=== PATIENT | female | born 1985 | race Caucasian/White ===

== ENCOUNTER 2021-09-13 12:59 | Emergency (ER) | payer OTHER, SELFPAY ==
[2021-09-13 13:20] VITALS: BP 134/88; PULSE 86; RESP 20; TEMP 35.8; O2SAT 97; BMI 34.1
[2021-09-13 13:30] VITALS: BP 126/76; PULSE 77; RESP 23; O2SAT 97
--- NOTE | 2021-09-13 13:42 | CRLHL7_ITS ---
For Patients: As a result of the Cures Act, medical imaging exams and procedure reports are released immediately into your electronic medical record. You may view this report before your referring provider. If you have questions, please contact your health care provider. INDICATION: Difficulty breathing TECHNIQUE: Chest radiograph 2 views COMPARISON: None FINDINGS: Mediastinum: The mediastinum is normal in appearance. The heart silhouette is normal in size and morphology. Lung: Small lung volumes are present with patchy airspace infiltrates present in the right midlung zone and bilateral lung bases, likely due to pneumonia. No sign of pleural effusion seen. No pneumothorax is identified. Bone and Soft tissue: Unremarkable for age. IMPRESSION: 1. Small lung volumes are present with patchy airspace infiltrates present in the right midlung zone and bilateral lung bases, likely due to pneumonia. Dictated by Suhail Prakash MD @ 09/13/2021 2:54:26 PM Dictated by: Suhail Prakash MD @ 09/13/2021 14:54:31 (Electronically Signed)
--- NOTE | 2021-09-13 13:49 | ED.SOB ---
HPI - SOB/Dyspnea General Time Seen by Provider: 13:49 <Steven Vargas MD - Last Filed: 09/13/21 17:06> Date Seen: 09/13/21 <Steven Vargas MD - Last Filed: 09/13/21 17:06> Chief Complaint: Shortness of Breath/Dyspnea <Steven Vargas MD - Last Filed: 09/13/21 17:06> Stated Complaint: Difficulty breathing and tight chest <Steven Vargas MD - Last Filed: 09/13/21 17:06> Time Seen by Provider: 09/13/21 13:02 <Steven Vargas MD - Last Filed: 09/13/21 17:06> Source: patient <Steven Vargas MD - Last Filed: 09/13/21 17:06> Mode of arrival: ambulatory <Steven Vargas MD - Last Filed: 09/13/21 17:06> Limitations: no limitations <Steven Vargas MD - Last Filed: 09/13/21 17:06> History of Present Illness HPI Narrative: Patient is the 36-year-old female who presents here for evaluation of shortness of breath and tightness of her upper chest region. Had this for the last 4 days, came on gradually, no real cough for cold-like symptoms associated with this. She wonders if this is asthma as there is a family history of both her sister and her mother having asthma she actually used a nebulizer of albuterol at home a couple times with no real improvement. Denies any fevers chills, other was no sudden onset of this, taking a deep breath in does cause exacerbation over upper chest region. Denies any radiation to her neck back or shoulders, denies any exertional component to this and occurs at rest also. Never before had this, denies any leg swelling, no recent long trips, and is not on oral contraceptives. No family history of PE DVT or premature heart disease, nonsmoker lifetime, non COVID vaccinated <Steven Vargas MD - Last Filed: 09/13/21 17:06> MD elicited complaint: shortness of breath and asthma attack <Steven Vargas MD - Last Filed: 09/13/21 17:06> Onset (ago): day(s) <Steven Vargas MD - Last Filed: 09/13/21 17:06> Exacerbating factors: deep breaths <Steven Vargas MD - Last Filed: 09/13/21 17:06> Relieving factors: nothing <Steven Vargas MD - Last Filed: 09/13/21 17:06> Associated symptoms: denies other symptoms <Steven Vargas MD - Last Filed: 09/13/21 17:06> Treatment prior to arrival: none <Steven Vargas MD - Last Filed: 09/13/21 17:06> Related Data Home Medications: Home Medications Medication Instructions Recorded Confirmed No Known Home Medications 09/13/21 09/13/21 <Steven Vargas MD - Last Filed: 09/13/21 17:06> Allergies/Adverse Reactions: Allergies Allergy/AdvReac Type Severity Reaction Status Date / Time morphine Allergy Verified 09/13/21 13:18 antidepressent Allergy Uncoded 09/13/21 13:18 steri strips Allergy Uncoded 09/13/21 13:18 <Steven Vargas MD - Last Filed: 09/13/21 17:06> Review of Systems Status of ROS: Reports: 10 or more systems reviewed and unremarkable except as noted in History and below <Steven Vargas MD - Last Filed: 09/13/21 17:06> [facility] Social History: Social History Smoking Status: Never smoker Do you use any of these nicotine containing products: None Second hand tobacco smoke exposure: Yes How often do you have a drink containing alcohol: never How often do you have six or more drinks on one occasion: Never AUDIT-C Alcohol total score: 0 Non-prescribed substance use: denies use service: No <Steven Vargas MD - Last Filed: 09/13/21 17:06> Exam Narrative: Exam Narrative: Patient is speaking to me normally in no apparent distress but looks a little bit anxious. Vital signs are reviewed all within normal limits with a slightly increased respiratory rate. Pupils equal round reactive to light oropharynx normal TMs normal neck is supple there is no JVP elevation, chest is good air entry bilaterally with absence of crackles or wheezes or signs or spiked her distress her heart sounds are normal her abdomen is soft and slightly obese, no organomegaly, no tenderness, scar from right lower abdominal incision for her gallbladder and her appendix noted. CVAT and back is normal. Extremities are all normal with absence of edema swelling, negative Homans sign normal peripheral pulses normal neurologic function normal power upper lower extremities and normal sensation. No evidence of rashes <Steven Vargas MD - Last Filed: 09/13/21 17:06> Const: Vital Signs, click to edit/add: Vital Signs - 24 hr 09/13/21 13:20 09/13/21 13:30 09/13/21 14:06 Temperature 96.4 F L Pulse Rate [Pulse Oximeter] 86 77 81 Respiratory Rate 20 23 11 L Blood Pressure [Ri ght Upper Arm] 134/88 126/76 136/83 Pulse Oximetry 97 97 Oxygen Delivery Me thod Room Air Room Air 09/13/21 15:50 Temperature Pulse Rate [Pulse Oximeter] 88 Respiratory Rate 20 Blood Pressure [Ri ght Upper Arm] 138/91 H Pulse Oximetry Oxygen Delivery Me thod <Steven Vargas MD - Last Filed: 09/13/21 17:06> Vital Signs, click to edit/add: Vital Signs - 24 hr 09/13/21 13:20 09/13/21 13:30 09/13/21 14:06 Temperature 96.4 F L Pulse Rate [Pulse Oximeter] 86 77 81 Respiratory Rate 20 23 11 L Blood Pressure [Ri ght Upper Arm] 134/88 126/76 136/83 Pulse Oximetry 97 97 Oxygen Delivery Me thod Room Air Room Air 09/13/21 15:50 Temperature Pulse Rate [Pulse Oximeter] 88 Respiratory Rate 20 Blood Pressure [Ri ght Upper Arm] 138/91 H Pulse Oximetry Oxygen Delivery Me thod <Vish Valentin MD - Last Filed: 09/13/21 18:44> Documenting provider has reviewed patient's vital signs: yes <Steven Vargas MD - Last Filed: 09/13/21 17:06> Course Course Hospital Course: Currently waiting on chest CT, as the chest x-ray did look like this is a community-acquired pneumonia, but given the shortness of breath the patient has I want to rule out pulmonary embolism even with normal D-dimer. I communicated this with the oncoming ER physician who will be taking over care and following up of the CT. If this does indeed show community-acquired pneumonia I recommend either mono treatment with Levaquin or use of Augmentin and Zithromax. <Steven Vargas MD - Last Filed: 09/13/21 17:06> Reevaluation(s) Reevaluation #1: CT shows no evidence of pulmonary embolism. She does have community-acquired pneumonia however. <Vish Valentin MD - Last Filed: 09/13/21 18:44> Time: 18:40 <Vish Valentin MD - Last Filed: 09/13/21 18:44> Vital Signs Vital signs: Initial Vital Signs Temperature 96.4 F L 09/13/21 13:20 Temperature Source Temporal Artery Scan 09/13/21 13:20 Pulse Rate 86 09/13/21 13:20 Pulse Rhythm 09/13/21 13:20 Respiratory Rate 20 09/13/21 13:20 Blood Pressure 134/88 09/13/21 13:20 Blood Pressure Mean 103 09/13/21 13:20 Pulse Oximetry 97 09/13/21 13:20 Oxygen Delivery Method 09/13/21 13:20 Vital Signs Temperature 96.4 F L 09/13/21 13:20 Pulse Rate 86 09/13/21 13:20 Respiratory Rate 20 09/13/21 13:20 Blood Pressure 134/88 09/13/21 13:20 Pulse Oximetry 97 09/13/21 13:20 Oxygen Delivery Method 09/13/21 13:20 Temperature 96.4 F L 09/13/21 13:20 Pulse Rate 88 09/13/21 15:50 Respiratory Rate 20 09/13/21 15:50 Blood Pressure 138/91 H 09/13/21 15:50 Pulse Oximetry 97 09/13/21 13:30 Oxygen Delivery Method 09/13/21 13:30 <Steven Vargas MD - Last Filed: 09/13/21 17:06> Initial Vital Signs Temperature 96.4 F L 09/13/21 13:20 Temperature Source Temporal Artery Scan 09/13/21 13:20 Pulse Rate 86 09/13/21 13:20 Pulse Rhythm 09/13/21 13:20 Respiratory Rate 20 09/13/21 13:20 Blood Pressure 134/88 09/13/21 13:20 Blood Pressure Mean 103 09/13/21 13:20 Pulse Oximetry 97 09/13/21 13:20 Oxygen Delivery Method 09/13/21 13:20 Vital Signs Temperature 96.4 F L 09/13/21 13:20 Pulse Rate 86 09/13/21 13:20 Respiratory Rate 20 09/13/21 13:20 Blood Pressure 134/88 09/13/21 13:20 Pulse Oximetry 97 09/13/21 13:20 Oxygen Delivery Method 09/13/21 13:20 Temperature 96.4 F L 09/13/21 13:20 Pulse Rate 88 09/13/21 15:50 Respiratory Rate 20 09/13/21 15:50 Blood Pressure 138/91 H 09/13/21 15:50 Pulse Oximetry 97 09/13/21 13:30 Oxygen Delivery Method 09/13/21 13:30 <Vish Valentin MD - Last Filed: 09/13/21 18:44> MDM - SOB/Dyspnea MDM Narrative Medical decision making narrative: Life-threatening differential diagnosis includes occluded COPD exacerbation, pulmonary edema, acute coronary syndromes, pulmonary embolism, pneumonia, and pneumothorax. Other differential diagnosis considerations include asthma, bronchitis as well as other etiologies, During the evaluation of this patient I considered multiple differential diagnosis is. The life-threatening differential diagnosis include coronary disease/MA, pulmonary embolism, pneumothorax, pneumonia, and aortic dissection. Other differential diagnosis included but were not limited to pericarditis, myocarditis, chest wall pain, GERD, esophageal rupture, rib fracture contusion, pleurisy, as well as other etiologies. <Steven Vargas MD - Last Filed: 09/13/21 17:06> Medical Records Attestation: I reviewed the patient's medical records. <Steven Vargas MD - Last Filed: 09/13/21 17:06> Lab Data Attestation: I reviewed the patient's lab results. <Steven Vargas MD - Last Filed: 09/13/21 17:06> Labs: Lab Results 09/13/21 09/13/21 09/13/21 Range/Units 14:05 15:17 15:17 WBC 6.91 (4.50-11.00) K/uL RBC 4.09 (4.00-5.20) m/uL Hgb 11.9 L (12.0-16.0) gm/dL Hct 35.0 (33.0-51.0) % MCV 86 (80-100) fL MCH 29 (26-34) pg MCHC 34 (32-36) gm/dL RDW Coeff of Idalmis 12.5 (11.5-15.5) % Plt Count 277 (140-440) K/uL Neut % (Auto) 47.3 (42.0-72.0) % Lymph % (Auto) 36.8 (20-44) % Addison % (Auto) 9.4 (0.0-11.0) % Eos % (Auto) 5.6 (0.0-7.0) % Baso % (Auto) 0.6 (0.0-3.0) % Neut # (Auto) 3.27 (1.7-7.0) K/uL Lymph # (Auto) 2.54 (0.90-2.90) K/uL Addison # (Auto) 0.60 (0.00-0.90) K/UL Eos # (Auto) 0.39 (0.00-0.50) K/uL Baso # (Auto) 0.04 (0.00-0.30) K/uL Abs Immat Gran (auto) 0.02 (0.00-0.30) K/uL D-Dimer Quant (PE/DVT) 0.38 (0.00-0.50) ug/ml Sodium (135-149) mmol/L Potassium (3.6-5.1) mmol/L Chloride (96-114) mmol/L Carbon Dioxide (20-32) mmol/L BUN (5-24) mg/dL Creatinine (0.5-1.5) mg/dL Estimated Creat Clear Estimated GFR ml/min Glucose (60-115) mg/dL Calcium (8.4-10.6) mg/dL NT-Pro-B Natriuret Pep (0-125) PG/mL SARS-CoV-2 (PCR) Negative SARS-CoV-2 (Negative) Influenza Type A (PCR) Negative PCR FLU A (Negative) Influenza Type B (PCR) Negative PCR FLU B (Negative) RSV (PCR) Negative PCR RSV (Negative) POC Troponin I (0.01-0.04) ng/ml 09/13/21 09/13/21 Range/Units 15:17 15:17 WBC (4.50-11.00) K/uL RBC (4.00-5.20) m/uL Hgb (12.0-16.0) gm/dL Hct (33.0-51.0) % MCV (80-100) fL MCH (26-34) pg MCHC (32-36) gm/dL RDW Coeff of Idalmis (11.5-15.5) % Plt Count (140-440) K/uL Neut % (Auto) (42.0-72.0) % Lymph % (Auto) (20-44) % Addison % (Auto) (0.0-11.0) % Eos % (Auto) (0.0-7.0) % Baso % (Auto) (0.0-3.0) % Neut # (Auto) (1.7-7.0) K/uL Lymph # (Auto) (0.90-2.90) K/uL Addison # (Auto) (0.00-0.90) K/UL Eos # (Auto) (0.00-0.50) K/uL Baso # (Auto) (0.00-0.30) K/uL Abs Immat Gran (auto) (0.00-0.30) K/uL D-Dimer Quant (PE/DVT) (0.00-0.50) ug/ml Sodium 140 (135-149) mmol/L Potassium 3.8 (3.6-5.1) mmol/L Chloride 105 (96-114) mmol/L Carbon Dioxide 26 (20-32) mmol/L BUN 10 (5-24) mg/dL Creatinine 0.5 (0.5-1.5) mg/dL Estimated Creat Clear 154.17 Estimated GFR 126 ml/min Glucose 94 (60-115) mg/dL Calcium 8.8 (8.4-10.6) mg/dL NT-Pro-B Natriuret Pep 79 (0-125) PG/mL SARS-CoV-2 (PCR) (Negative) Influenza Type A (PCR) (Negative) Influenza Type B (PCR) (Negative) RSV (PCR) (Negative) POC Troponin I 0.00 L (0.01-0.04) ng/ml <Steven Vargas MD - Last Filed: 09/13/21 17:06> Lab Results 09/13/21 09/13/21 09/13/21 Range/Units 14:05 15:17 15:17 WBC 6.91 (4.50-11.00) K/uL RBC 4.09 (4.00-5.20) m/uL Hgb 11.9 L (12.0-16.0) gm/dL Hct 35.0 (33.0-51.0) % MCV 86 (80-100) fL MCH 29 (26-34) pg MCHC 34 (32-36) gm/dL RDW Coeff of Idalmis 12.5 (11.5-15.5) % Plt Count 277 (140-440) K/uL Neut % (Auto) 47.3 (42.0-72.0) % Lymph % (Auto) 36.8 (20-44) % Addison % (Auto) 9.4 (0.0-11.0) % Eos % (Auto) 5.6 (0.0-7.0) % Baso % (Auto) 0.6 (0.0-3.0) % Neut # (Auto) 3.27 (1.7-7.0) K/uL Lymph # (Auto) 2.54 (0.90-2.90) K/uL Addison # (Auto) 0.60 (0.00-0.90) K/UL Eos # (Auto) 0.39 (0.00-0.50) K/uL Baso # (Auto) 0.04 (0.00-0.30) K/uL Abs Immat Gran (auto) 0.02 (0.00-0.30) K/uL D-Dimer Quant (PE/DVT) 0.38 (0.00-0.50) ug/ml Sodium (135-149) mmol/L Potassium (3.6-5.1) mmol/L Chloride (96-114) mmol/L Carbon Dioxide (20-32) mmol/L BUN (5-24) mg/dL Creatinine (0.5-1.5) mg/dL Estimated Creat Clear Estimated GFR ml/min Glucose (60-115) mg/dL Calcium (8.4-10.6) mg/dL NT-Pro-B Natriuret Pep (0-125) PG/mL SARS-CoV-2 (PCR) Negative SARS-CoV-2 (Negative) Influenza Type A (PCR) Negative PCR FLU A (Negative) Influenza Type B (PCR) Negative PCR FLU B (Negative) RSV (PCR) Negative PCR RSV (Negative) POC Troponin I (0.01-0.04) ng/ml 09/13/21 09/13/21 Range/Units 15:17 15:17 WBC (4.50-11.00) K/uL RBC (4.00-5.20) m/uL Hgb (12.0-16.0) gm/dL Hct (33.0-51.0) % MCV (80-100) fL MCH (26-34) pg MCHC (32-36) gm/dL RDW Coeff of Idalmis (11.5-15.5) % Plt Count (140-440) K/uL Neut % (Auto) (42.0-72.0) % Lymph % (Auto) (20-44) % Addison % (Auto) (0.0-11.0) % Eos % (Auto) (0.0-7.0) % Baso % (Auto) (0.0-3.0) % Neut # (Auto) (1.7-7.0) K/uL Lymph # (Auto) (0.90-2.90) K/uL Addison # (Auto) (0.00-0.90) K/UL Eos # (Auto) (0.00-0.50) K/uL Baso # (Auto) (0.00-0.30) K/uL Abs Immat Gran (auto) (0.00-0.30) K/uL D-Dimer Quant (PE/DVT) (0.00-0.50) ug/ml Sodium 140 (135-149) mmol/L Potassium 3.8 (3.6-5.1) mmol/L Chloride 105 (96-114) mmol/L Carbon Dioxide 26 (20-32) mmol/L BUN 10 (5-24) mg/dL Creatinine 0.5 (0.5-1.5) mg/dL Estimated Creat Clear 154.17 Estimated GFR 126 ml/min Glucose 94 (60-115) mg/dL Calcium 8.8 (8.4-10.6) mg/dL NT-Pro-B Natriuret Pep 79 (0-125) PG/mL SARS-CoV-2 (PCR) (Negative) Influenza Type A (PCR) (Negative) Influenza Type B (PCR) (Negative) RSV (PCR) (Negative) POC Troponin I 0.00 L (0.01-0.04) ng/ml <Vish Valentin MD - Last Filed: 09/13/21 18:44> Imaging Data Chest x-ray: Attestation: I have reviewed the pertinent imaging results. <Steven Vargas MD - Last Filed: 09/13/21 17:06> My impression: Right-sided hilar infiltrate possible pneumonia <Steven Vargas MD - Last Filed: 09/13/21 17:06> Radiologist's impression: Patient: DANNY RIVERA Facility:?[facility] Patient ID:?[id number] Site Patient ID:?[id number] Site :?[id number] Study:?XRay Chest 2 VIEW-09/13/2021 2:34:19 PM Ordering Physician:Rayna Harris Final Report: INDICATION: Difficulty breathing TECHNIQUE: Chest radiograph 2 views COMPARISON: None FINDINGS: Mediastinum: The mediastinum is normal in appearance. The heart silhouette is normal in size and morphology. Lung: Small lung volumes are present with patchy airspace infiltrates present in the right midlung zone and bilateral lung bases, likely due to pneumonia. No sign of pleural effusion seen. No pneumothorax is identified. Bone and Soft tissue: Unremarkable for age. IMPRESSION: 1. Small lung volumes are present with patchy airspace infiltrates present in the right midlung zone and bilateral lung bases, likely due to pneumonia. Dictated by Suhail Prakash MD @ 09/13/2021 2:54:26 PM Dictated by: Suhail Prakash MD @ 09/13/2021 14:54:31 (Electronic Signature) <Steven Vargas MD - Last Filed: 09/13/21 17:06> CT scan - chest: My impression: Community-acquired pneumonia <Vish Valentin MD - Last Filed: 09/13/21 18:44> Discharge Plan Discharge Clinical Impression: Community acquired pneumonia <Steven Vargas MD - Last Filed: 09/13/21 17:06> Patient Disposition: Home, Self-Care <Steven Vargas MD - Last Filed: 09/13/21 17:06> Condition: Stable <Steven Vargas MD - Last Filed: 09/13/21 17:06> Instructions: Community Acquired Pneumonia (DC), Shortness of Breath (ED) <Steven Vargas MD - Last Filed: 09/13/21 17:06> Additional Instructions: Levaquin as directed <Steven Vargas MD - Last Filed: 09/13/21 17:06> Activity Level: No Restrictions <Steven Vargas MD - Last Filed: 09/13/21 17:06> No Restrictions <Vish Valentin MD - Last Filed: 09/13/21 18:44> Discharge Diet: Regular <Steven Vargas MD - Last Filed: 09/13/21 17:06> Regular <Vish Valentin MD - Last Filed: 09/13/21 18:44> Prescriptions: No Action No Known Home Medications <Steven Vargas MD - Last Filed: 09/13/21 17:06> Follow Up/Referrals: Eliazar Lagos MD [Primary Care Provider] - <Steven Vargas MD - Last Filed: 09/13/21 17:06> Stand Alone Forms: [facility] Info Instructions <Steven Vargas MD - Last Filed: 09/13/21 17:06>
[2021-09-13 14:06] VITALS: BP 136/83; PULSE 81; RESP 11
[2021-09-13 14:51] LABS: PCR FLU A Negative PCR FLU A (Negative); PCR FLU B Negative PCR FLU B (Negative); PCR RSV Negative PCR RSV (Negative)
--- NOTE | 2021-09-13 14:51 | ED.NURSE ---
Anesthesia in to attempt IV start
[2021-09-13 14:54] LABS: SARS PCR* Negative SARS-CoV-2 (Negative)
--- NOTE | 2021-09-13 15:20 | ED.NURSE ---
anesthesia started iv R AC, #18. blood drawn off iv start
[2021-09-13 15:30] LABS: Basophils Absolute Auto 0.04 K/uL (0.00-0.30); Basophils Percent Auto 0.6 % (0.0-3.0); Eosinophils Absolute Auto 0.39 K/uL (0.00-0.50); Eosinophils Percent Auto 5.6 % (0.0-7.0); Hemoglobin* 11.9 gm/dL (12.0-16.0); Immature Granulocytes Abs Auto 0.02 K/uL (0.00-0.30); Lymphocytes Absolute Auto 2.54 K/uL (0.90-2.90); Lymphocytes Percent Auto 36.8 % (20-44); Mean Corpuscular HGB Conc 34 gm/dL (32-36); Mean Corpuscular Hemoglobin 29 pg (26-34); Mean Corpuscular Volume 86 fL (80-100); Monocytes Percent Auto 9.4 % (0.0-11.0); Neutrophils Absolute Auto 3.27 K/uL (1.7-7.0); Neutrophils Percent Auto 47.3 % (42.0-72.0); Platelet Count* 277 K/uL (140-440); RDW Coefficient of Variation % 12.5 % (11.5-15.5); Red Blood Count 4.09 m/uL (4.00-5.20); White Blood Count* 6.91 K/uL (4.50-11.00)
[2021-09-13 15:37] LABS: Slide Review Reflex No
[2021-09-13 15:50] VITALS: BP 138/91; PULSE 88; RESP 20
[2021-09-13 15:53] LABS: Chloride* 105 mmol/L (96-114); Sodium* 140 mmol/L (135-149)
[2021-09-13 15:54] LABS: Potassium* 3.8 mmol/L (3.6-5.1)
[2021-09-13 15:55] LABS: D Dimer Quantitative* 0.38 ug/ml (0.00-0.50)
[2021-09-13 15:56] LABS: Creatinine* 0.5 mg/dL (0.5-1.5); Est. Creatinine Clearance* 154.17; Estimated Glomerular Filt Rate 126 ml/min
[2021-09-13 15:57] LABS: Blood Urea Nitrogen* 10 mg/dL (5-24); Calcium* 8.8 mg/dL (8.4-10.6); Carbon Dioxide* 26 mmol/L (20-32); Glucose* 94 mg/dL (60-115)
[2021-09-13 16:04] LABS: NT Pro B Type NatriureticPept* 79 PG/mL (0-125)
--- NOTE | 2021-09-13 16:13 | CRLHL7_ITS ---
For Patients: As a result of the Century Cures Act, medical imaging exams and procedure reports are released immediately into your electronic medical record. You may view this report before your referring provider. If you have questions, please contact your health care provider. INDICATION: Shortness of breath, chest pain. TECHNIQUE : CT scan of the chest. CTA PE protocol. IV contrast. IV contrast: Isovue 370 95 mL Please note that all CT scans at this facility use dose modulation, iterative reconstruction and/or weight-based dosing when appropriate to reduce radiation dose to as low as reasonably achievable(ALARA). COMPARISON : No comparison chest CT. FINDINGS: CALL OR CONTACT CENT[employer] MANAGER CT IMAGES: Patchy airspace opacification is suspected in the right upper lung zone. Cholecystectomy surgical clips are noted in the right upper abdomen. Heart size within normal limits. PULMONARY ARTERIES: No focal pulmonary artery filling defects. THORACIC AORTA: Thoracic aorta normal in caliber. No dissection. HEART AND MEDIASTINUM: Heart size is normal. No pericardial effusion. No pathologically enlarged mediastinal lymph nodes. No anterior mediastinal mass. LUNGS AND PLEURA: Patchy opacities in the right upper lobe with scattered ground-glass opacities. There are additional areas of ground-glass opacification in the left lingula and left lower lobe. No pleural effusions or pneumothorax. CHEST WALL AND SOFT TISSUES: Chest wall soft tissues unremarkable. No enlarged axillary lymph nodes. THYROID GLAND: Within normal limits. UPPER ABDOMEN: Gallbladder surgically absent. BONES: Unremarkable. IMPRESSION: 1. Multifocal pneumonia involving the right upper lobe, left lower lobe, and left lingula with differential including COVID-19 viral pneumonitis. 2. No acute pulmonary embolism. Dictated by Scooter Baxter MD @ 09/13/2021 6:22:32 PM Please note that all CT scans at this facility use dose modulation, iterative reconstruction, and/or weight-based dosing when appropriate to reduce radiation dose to as low as reasonably achievable. Dictated by: Scooter Baxter MD @ 09/13/2021 18:22:46 (Electronically Signed)
[2021-09-13] MEDS: 0.9 % SODIUM CHLORIDE 1000 ml 1,000 ML IV (16:20)
--- NOTE | 2021-09-13 16:57 | ED.NURSE ---
Pt to and back from radiology
== END 2021-09-13 19:01 | disposition home or self-care (01) ==
PROVIDERS: Family Medicine; Emergency Provider Internal Medicine; PCP Family Medicine
DX: J18.9 Pneumonia, unspecified organism (principal)
CPT/HCPCS: 36415; 71046; 71260; 80048; 83880; 84484; 85025; 85379; 87502; 87634; 87635; 93005; 96360; 99283; 99284; 99285; J7030; Q9967

== ENCOUNTER 2023-10-04 10:11 | Outpatient (CLI) | payer BC, SELFPAY ==
--- OUTSIDE RECORDS SUMMARY | 2023-10-04 10:17 | XMS_ITS | Clinical Summary ---
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 20 tablet 0 09/01/2011 Active sertraline (ZOLOFT) 100 mg tabletIndications:Dep ression, major Take 2 tablets by mouth once daily. 180 tablet 3 09/29/2011 Active buPROPion (WELLBUTRIN XL) 150 mg Extended-Release tabletIndications:Dep ression, major,Anxiety state, unspecified Take 1 tablet by mouth every morning. 90 tablet 0 10/19/2011 Active ketoconazole 2% shampoo (NIZORAL) 2 % shampooIndications:Ti milady capitis Apply topically to affected area(s) once daily. Lather on damp scalp,leave on for 5min, rinse with water. 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 Depression, major 04/13/2008 Anxiety state, unspecified 04/13/2008 Immunizations Name Administration Dates Next Due Hepatitis A (Adult) 10/19/2011 Human Papilloma Virus Vaccine 04/02/2009, 009,05/22/2008 Influenza, IIV3 (Age >=3 years) 10/19/2011,10/19 Tdap 09/01/2011 Family History Medical History Relation Name Comments Diabetes Father Cancer Maternal Aunt Diabetes Maternal Aunt Heart Disease Maternal Aunt Hypertension Maternal Grandmother Cancer Maternal Uncle Asthma Mother Psychiatric illness Mother depressi on Diabetes Paternal Aunt Diabetes Paternal Grandfather Diabetes Paternal Grandmother Relation Name Status Comments Father Maternal Aunt Maternal Grandmother Maternal Uncle Mother Paternal Aunt Paternal Grandfather Paternal Grandmother Social History Tobacco Use Types Packs/Day Years Used Date Smoking Tobacco: Never Smokeless Tobacco: Never Alcohol Use Standard Drinks/Week Comments Yes 0 (1 standard drink = 0.6 oz pur e alcohol) rarely Sex and Gender Information Value Date Recorded Sex Assigned at Not on file Gender Identity Not on file Sexual Orientation Not on file Obstetrics History Last Filed Vital Signs Vital Sign Reading Time Taken Comments Blood Pressure 138/82 11/24/2011 2:40 PM CDT Pulse 80 11/24/2011 2:40 PM CDT Temperature 37.1 ??C (98.7 ??F) 10/19/2011 6:17 PM CD T Respiratory Rate 18 11/24/2011 2:40 PM CDT Oxygen Saturation - - Inhaled Oxygen Concentration - - Weight 118.8 kg (261 lb 12.8 oz) 11/24/2011 2:40 PM CDT Height 167 cm (5' 5.75) 10/19/2011 6:17 PM CDT Body Mass Index 42.58 10/19/2011 6:17 PM CDT Plan of Treatment Health Maintenance Due Date Last Done Comments Depression screening for age 12+ 1998 HIV for age 15-65 2001 BMI (ht and wt on same day) for age 18+ 2004 Hepatitis C screening for age 18-79 2004 Tetanus booster 08/31/2021 09/01/2011 COVID-19 vaccine series (2022- season) 2022 Influenza for age 9-49 10/07/2023 10/19/2011, 2008 Pap test for age 21-65 01/17/2026 , 01/17/2023, 09/01/2011, Additional history exists Tdap Completed 09/01/2011 Pneumococcal series for age 6-64 Aged Out No longer eligible based on patient's age to complete this topic Procedures Procedure Name Priority Date/Time Associated Diagnosis Comments HPV THIN PREP Routine 01/17/2023 12:00 PM ETCHER MACHINE from Last 3 Months or Most Recently Relevant to Health Maintenance Results * HPV HIGH RISK (01/17/2023 12:00 PM ETCHER MACHINE) TYPE 16 Negative Negative 01/25/2023 1:48 PM ETCHER MACHINE [facility] TYPE 18 Negative Negative 01/25/2023 1:48 PM ETCHER MACHINE [facility] OTHER HIGH RISK TYPES Negative Negative 01/25/2023 1:48 PM ETCHER MACHINE [facility] Other (Other) Non-Blood / Unknown 01/17/2023 12:00 PM ETCHER MACHINE 01/24/2023 6:20 AM ETCHER MACHINE Narrative [facility] - 01/25/2023 1:48 PM ETCHER MACHINE HPV types 16, 18, 31, 33, 35, 39, 45, 51, 52, 56, 58, 59, 66 and 68 DNA were undetectable or below the pre-set threshold. Methodology: Sky Malissa 4800 HPV Test Sonia Cutler MD MICROBIOLOGY [facility] [address] [place] [address], from Last 3 Months or Most Recently Relevant to Health Maintenance Care Teams Assembled Wood Products Repairer Relationship Specialty Start Date End Date Pcp, No . PCP - General 03/31/15
== END 2023-10-04 10:12 | disposition home or self-care (01) ==
PROVIDERS: PCP Family Medicine; Visit Provider Family Medicine
DX: Z82.49 Family history of ischemic heart disease and other diseases of the circulatory system (principal); Z13.228 Encounter for screening for other metabolic disorders; Z13.220 Encounter for screening for lipoid disorders
CPT/HCPCS: 80048; 80061